=== PATIENT | female | born 1955 | race Caucasian/White ===

== ENCOUNTER 2020-06-28 07:31 | Day surgery (SDC) | payer OTHER, MEDICARE ==
[2020-06-23 15:54] VITALS: BMI 24.3
[2020-06-28] MEDS ORDERED: MIDAZOLAM HCL 2 MG/2 ML SINGLE DOSE VIAL ONE ×2 (09:00→12:02)
[2020-06-28] MEDS ORDERED: BUPIVACAINE HCL/PF 0.5% (5 MG/ML) 30 ML VIAL IJ ONE (09:00)
[2020-06-28] MEDS ORDERED: DEXAMETHASONE SOD PHOSPHATE/PF 10 MG/ML SDV ONE (09:00)
[2020-06-28] MEDS ORDERED: BUPIVACAINE HCL/PF 0.25% (2.5MG/ML) 10 ML VIAL ONE (10:48)
[2020-06-28] MEDS ORDERED: ceFAZolin SODIUM 1 GM VIAL ONE (12:01)
[2020-06-28] MEDS ORDERED: DEXAMETHASONE SOD PHOSPHATE 4 MG/1 ML VIAL ONE (12:06)
[2020-06-28] MEDS ORDERED: ONDANSETRON 4 MG/2 ML VIAL ONE (12:06)
[2020-06-28] MEDS ORDERED: oxyCODONE HCL 5 MG TABLET PO PRN (12:35)
[2020-06-28] MEDS ORDERED: ONDANSETRON 4 MG/2 ML VIAL IVPUSH PRN (12:35)
[2020-06-28] MEDS ORDERED: LACTATED RINGERS SOLUTION 1,000 ML IV SCH (12:45)
[2020-06-28 12:50] VITALS: TEMP 97.9
[2020-06-28 15:29] VITALS: BP 110/68; PULSE 62
== END 2020-06-28 15:29 | disposition home or self-care (01) ==
LOC: FASU 07:31
PROVIDERS: ATTEND Orthopaedic Surgery
PROC: 0LQN0ZZ Repair Right Lower Leg Tendon, Open Approach (ICD-10-PCS; principal; 2020-06-28 12:07)
DX: M76.61 Achilles tendinitis, right leg (principal)
CPT/HCPCS: 94760

== ENCOUNTER 2022-03-26 04:42 | Day surgery (SDC) | payer OTHER, MEDICARE ==
[2022-03-25 13:07] VITALS: BMI 24.3
[2022-03-26] MEDS ORDERED: BUPIVACAINE HCL/PF 0.75% 10 ML VIAL ONE (13:26)
[2022-03-26 14:08] VITALS: RESP 18
[2022-03-26] MEDS ORDERED: LIDOCAINE 1% P/F 10 MG/ML VIAL SNB ONE (15:20)
[2022-03-26] MEDS ORDERED: BUPIVACAINE HCL/PF 0.75% 10 ML VIAL NR ONE (15:20)
[2022-03-26 16:39] VITALS: BP 115/70; PULSE 56; TEMP 97.8
== END 2022-03-26 15:55 | disposition home or self-care (01) ==
LOC: JASU-SURG 04:42
PROVIDERS: ATTEND Pain Medicine Pain Medicine
PROC: BR16YZZ Fluoroscopy of Lumbar Facet Joint(s) using Other Contrast (ICD-10-PCS; 2022-03-26)
PROC: 3E0T3BZ Introduction of Anesthetic Agent into Peripheral Nerves and Plexi, Percutaneous Approach (ICD-10-PCS; principal; 2022-03-26 15:00)
DX: M47.816 Spondylosis without myelopathy or radiculopathy, lumbar region (principal)
CPT/HCPCS: 76000-TC-FY

== ENCOUNTER 2022-04-30 05:44 | Day surgery (SDC) | payer OTHER, MEDICARE ==
[2022-04-29 15:46] VITALS: BMI 24.3
[~2022-04-30 05:44] MED LIST: BUPIVACAINE HCL/PF 0.75% 10 ML VIAL NR ONE; LIDOCAINE HCL 1% PRESERVATIVE FREE - 30ML VIAL IJ ONE
[2022-04-30] MEDS ORDERED: LIDOCAINE HCL/PF 1% SDV 5ML VIAL ONE (07:44)
[2022-04-30] MEDS ORDERED: BUPIVACAINE HCL/PF 0.75% 10 ML VIAL ONE (07:44)
[2022-04-30 12:24] VITALS: RESP 18
[2022-04-30] MEDS ORDERED: LIDOCAINE HCL 1% PRESERVATIVE FREE - 30ML VIAL IJ ONE (14:40)
[2022-04-30] MEDS ORDERED: BUPIVACAINE HCL/PF 0.75% 10 ML VIAL NR ONE (14:45)
[2022-04-30 15:41] VITALS: BP 120/80; PULSE 64; TEMP 97.9
== END 2022-04-30 15:20 | disposition home or self-care (01) ==
LOC: JASU-SURG 05:44
PROVIDERS: ATTEND Pain Medicine Pain Medicine
PROC: 3E0T33Z Introduction of Anti-inflammatory into Peripheral Nerves and Plexi, Percutaneous Approach (ICD-10-PCS; 2022-04-30)
PROC: 3E0T3BZ Introduction of Anesthetic Agent into Peripheral Nerves and Plexi, Percutaneous Approach (ICD-10-PCS; principal; 2022-04-30 13:30)
DX: M47.816 Spondylosis without myelopathy or radiculopathy, lumbar region (principal)
CPT/HCPCS: 76000-TC-FY

== ENCOUNTER 2022-06-04 04:29 | Day surgery (SDC) | payer OTHER, MEDICARE ==
[2022-05-27 16:16] VITALS: BMI 24.3
[2022-06-04] MEDS ORDERED: BUPIVACAINE HCL/PF 0.75% 10 ML VIAL ONE ×2 (07:12→07:14)
[2022-06-04] MEDS ORDERED: LIDOCAINE HCL/PF 1% SDV 5ML VIAL ONE ×2 (07:12→07:14)
[2022-06-04] MEDS ORDERED: DEXAMETHASONE SOD PHOSPHATE 10 MG/1 ML VIAL ONE (07:12)
[2022-06-04] MEDS ORDERED: LIDOCAINE HCL/PF 2% SDV 5ML VIAL ONE (07:12)
[2022-06-04 10:48] VITALS: RESP 20
[2022-06-04] MEDS ORDERED: LIDOCAINE HCL 1% PRESERVATIVE FREE - 30ML VIAL IJ ONE (12:03)
[2022-06-04] MEDS ORDERED: LIDOCAINE HCL/PF 2% SDV 5ML VIAL INF ONE (12:04)
[2022-06-04] MEDS ORDERED: DEXAMETHASONE SOD PHOSPHATE 10 MG/1 ML VIAL IVPUSH ONE (12:07)
[2022-06-04] MEDS ORDERED: BUPIVACAINE HCL/PF 0.75% 10 ML VIAL PNB ONE (12:07)
[2022-06-04 13:40] VITALS: BP 114/57; PULSE 58; TEMP 98.2
== END 2022-06-04 13:05 | disposition home or self-care (01) ==
LOC: JASU-SURG 04:29
PROVIDERS: ATTEND Pain Medicine Pain Medicine
PROC: BR16YZZ Fluoroscopy of Lumbar Facet Joint(s) using Other Contrast (ICD-10-PCS; 2022-06-04)
PROC: 3E0T3TZ Introduction of Destructive Agent into Peripheral Nerves and Plexi, Percutaneous Approach (ICD-10-PCS; principal; 2022-06-04 11:30)
DX: M47.816 Spondylosis without myelopathy or radiculopathy, lumbar region (principal)
CPT/HCPCS: 76000-TC-FY; J1100

== ENCOUNTER 2022-06-25 04:32 | Day surgery (SDC) | payer OTHER, MEDICARE ==
[2022-06-19 16:50] VITALS: BMI 24.3
[~2022-06-25 04:32] MED LIST changes: +DEXAMETHASONE SOD PHOSPHATE 10 MG/1 ML VIAL IVPUSH ONE; +LIDOCAINE HCL/PF 2% SDV 5ML VIAL INF ONE
[2022-06-25] MEDS ORDERED: DEXAMETHASONE SOD PHOSPHATE 10 MG/1 ML VIAL ONE (07:22)
[2022-06-25] MEDS ORDERED: BUPIVACAINE HCL/PF 0.75% 10 ML VIAL ONE ×2 (07:22→12:19)
[2022-06-25] MEDS ORDERED: LIDOCAINE HCL/PF 2% SDV 5ML VIAL ONE (07:22)
[2022-06-25] MEDS ORDERED: LIDOCAINE HCL/PF 1% SDV 5ML VIAL ONE (07:23)
[2022-06-25 11:09] VITALS: RESP 18; TEMP 98
[2022-06-25] MEDS ORDERED: LIDOCAINE HCL 1% PRESERVATIVE FREE - 30ML VIAL IJ ONE (12:17)
[2022-06-25] MEDS ORDERED: LIDOCAINE HCL/PF 2% SDV 5ML VIAL INF ONE ×2 (12:17→12:29)
[2022-06-25] MEDS ORDERED: DEXAMETHASONE SOD PHOSPHATE 10 MG/1 ML VIAL IVPUSH ONE (12:36)
[2022-06-25] MEDS ORDERED: BUPIVACAINE HCL/PF 0.75% 10 ML VIAL NR ONE (12:36)
[2022-06-25 13:31] VITALS: BP 118/57; PULSE 57
== END 2022-06-25 13:15 | disposition home or self-care (01) ==
LOC: JASU-SURG 04:32
PROVIDERS: ATTEND Pain Medicine Pain Medicine
PROC: 005Y3ZZ Destruction of Lumbar Spinal Cord, Percutaneous Approach (ICD-10-PCS; principal; 2022-06-25 12:00)
DX: M47.816 Spondylosis without myelopathy or radiculopathy, lumbar region (principal)
CPT/HCPCS: 76000-TC-FY; J1100

== ENCOUNTER 2023-06-24 04:10 | Day surgery (SDC) | payer OTHER, MEDICARE ==
[2023-06-19 11:40] VITALS: BMI 24.3
[~2023-06-24 04:10] MED LIST changes: -LIDOCAINE HCL 1% PRESERVATIVE FREE - 30ML VIAL IJ ONE
[2023-06-24 07:04] VITALS: RESP 18
[2023-06-24] MEDS ORDERED: LIDOCAINE HCL 1% PRESERVATIVE FREE - 30ML VIAL IJ ONE (08:51)
[2023-06-24] MEDS ORDERED: LIDOCAINE HCL/PF 2% SDV 5ML VIAL INF ONE (09:20)
[2023-06-24] MEDS ORDERED: DEXAMETHASONE SOD PHOSPHATE 10 MG/1 ML VIAL IVPUSH ONE (09:34)
[2023-06-24] MEDS ORDERED: BUPIVACAINE HCL/PF 0.75% 10 ML VIAL NR ONE (09:34)
[2023-06-24] MEDS ORDERED: LIDOCAINE HCL/PF 2% SDV 5ML VIAL ONE (09:45)
[2023-06-24] MEDS ORDERED: DEXAMETHASONE SOD PHOSPHATE 10 MG/1 ML VIAL ONE ×2 (09:45→10:08)
[2023-06-24 09:59] VITALS: BP 119/70; PULSE 78; TEMP 98.6
[2023-06-24] MEDS ORDERED: ACETAMINOPHEN 500 MG TABLET (FP) PO PRN (15:16)
== END 2023-06-24 10:13 | disposition home or self-care (01) ==
LOC: JASU-SURG 04:10
PROVIDERS: ATTEND Pain Medicine Pain Medicine
PROC: 015B3ZZ Destruction of Lumbar Nerve, Percutaneous Approach (ICD-10-PCS; principal; 2023-06-24 08:45)
DX: M47.816 Spondylosis without myelopathy or radiculopathy, lumbar region (principal)
CPT/HCPCS: 76000-TC-FY; J1100

== ENCOUNTER 2024-08-19 06:45 | Day surgery (SDC) | payer OTHER, MEDICARE ==
[2024-08-16 18:05] VITALS: BMI 23.2
[2024-08-19] MEDS ORDERED: ACETAMINOPHEN 500 MG TABLET (FP) PO PRN (09:06)
[2024-08-19 11:04] VITALS: RESP 18
[2024-08-19] MEDS: LIDOCAINE HCL 1% PRESERVATIVE FREE - 30ML VIAL IJ ONE (12:38)
[2024-08-19] MEDS: LIDOCAINE HCL/PF 2% SDV 5ML VIAL INF ONE (12:40)
[2024-08-19] MEDS: BUPIVACAINE HCL/PF 0.5% (5MG/ML) 10 ML VIAL IJ ONE (12:46)
[2024-08-19] MEDS: DEXAMETHASONE SOD PHOSPHATE 10 MG/1 ML VIAL IM ONE (12:47)
[2024-08-19 13:49] VITALS: BP 123/66; PULSE 55; TEMP 97.8
== END 2024-08-19 13:30 | disposition home or self-care (01) ==
LOC: JASU-SURG 06:45
PROVIDERS: ATTEND Pain Medicine Pain Medicine
PROC: 015B3ZZ Destruction of Lumbar Nerve, Percutaneous Approach (ICD-10-PCS; principal; 2024-08-19 12:15)
DX: M47.816 Spondylosis without myelopathy or radiculopathy, lumbar region (principal)
CPT/HCPCS: 76000-TC-FY; J1100